=== PATIENT | male | born 1960 | race Caucasian/White ===

== ENCOUNTER 2019-08-08 17:43 | Emergency (ER) | payer BC ==
[~2019-08-08] VITALS: Ht 180.3 cm; Wt 88.5 kg
[2019-08-08] MEDS ORDERED: KEFLEX500 M1 PO (19:07)
[2019-08-08 19:56] VITALS: BP 146/101
== END 2019-08-08 19:56 | disposition home or self-care (01) ==
LOC: M.ERS 17:43
DX: S61.512A Laceration without foreign body of left wrist, initial encounter (principal); W25.XXXA Contact with sharp glass, initial encounter; Y93.89 Activity, other specified; Y92.89 Other specified places as the place of occurrence of the external cause; Y99.8 Other external cause status